=== PATIENT | female | born 1980 | race Caucasian/White ===

== ENCOUNTER 2020-10-06 19:50 | Emergency (ER) | payer BC ==
[~2020-10-06] VITALS: Ht 160 cm; Wt 68.0 kg
[~2020-10-06 19:50] MED LIST: LAMO100T2 PO
--- NOTE | 2020-10-06 21:00 | NUR ---
Dr. Verde at bedside for MSE.
--- NOTE | 2020-10-06 21:11 | NUR ---
Xray at bedside
--- NOTE | 2020-10-06 21:42 | NUR ---
Dr. Verde speaking with Dr. So radiologist.
[2020-10-06] MEDS ORDERED: HYDROCODONE/APAP 5-325MG TABLET PO ONE (22:15)
[2020-10-06] MEDS ORDERED: KETOROLAC TROMETHAMINE 60 MG INJ IM ONE ×2 (22:15→22:16)
[2020-10-06] MEDS ORDERED: HYDROCODONE/APAP 5-325MG TABLET ONE (22:16)
--- NOTE | 2020-10-06 22:33 | NUR ---
Patient discharged to home in stable condition. Written and verbal after care instructions given. Patient verbalizes understanding of instructions. Stressed follow up or return to ER for worsening s/s. Patient out of ER in wheelchair, assisted patient on transfer to car, no falls noted, no acute signs of distress, VSS, all belongings taken, provided with xray CD, to be driven home by father via private vehicle.
[2020-10-06 22:35] VITALS: BP 120/70
== END 2020-10-06 22:35 | disposition home or self-care (01) ==
LOC: ER 19:50
DX: S92.334A Nondisplaced fracture of third metatarsal bone, right foot, initial encounter for closed fracture (principal); W17.89XA Other fall from one level to another, initial encounter; Y93.K1 Activity, walking an animal; Y92.480 Sidewalk as the place of occurrence of the external cause; Y99.8 Other external cause status; F31.9 Bipolar disorder, unspecified; Z79.899 Other long term (current) drug therapy
CPT/HCPCS: 29515; 73630; 96372; 99283; J1885; A4663